=== PATIENT | male | born 1955 | race Caucasian/White ===

== ENCOUNTER 2018-04-08 09:05 | Observation (INO) | payer MEDICARE ==
[~2018-04-08] VITALS: Ht 175.3 cm; Wt 106.6 kg
[2018-04-08] MEDS ORDERED: LORazepam 2 MG/ML, 1ML ONE (09:29)
[2018-04-08] MEDS ORDERED: LORazepam 2 MG/ML, 1ML IVPush ONE (09:30)
[2018-04-08] MEDS ORDERED: SODIUM CHLORIDE FLUSH 10ML SYR IVF ONE (09:30)
[2018-04-08 09:53] LABS: BASOPHILS # (AUTO) 0.03 x10^3/uL (0-0.1); BASOPHILS % (AUTO) 0 % (0-1); EOSINOPHILS # (AUTO) 0.01 x10^3/uL (0-0.4); EOSINOPHILS % (AUTO) 0 % (1-7); LYMPHOCYTES # (AUTO) 0.57 x10^3/uL (1-3.4); LYMPHOCYTES % (AUTO) 8 % (22-44); MD NO; MEAN CORPUSCULAR HEMOGLOBIN 36.5 pg (27.5-34.5); MEAN CORPUSCULAR HGB CONC 34.4 g/dL (33.2-36.2); MEAN CORPUSCULAR VOLUME 106.3 fL (81-97); MEAN PLATELET VOLUME 8.2 fL (7.4-10.4); MONOCYTES # (AUTO) 0.63 x10^3/uL (0.2-0.8); MONOCYTES % (AUTO) 9 % (2-9); NEUTROPHILS # (AUTO) 6.11 x10^3/uL (1.8-6.8); NEUTROPHILS % (AUTO) 83 % (42-75); PLATELET COUNT 167 x10^3/uL (130-400); RED BLOOD COUNT 3.75 x10^6/uL (4.38-5.82); RED CELL DISTRIBUTION WIDTH 12.9 % (9.4-14.8)
[2018-04-08 10:05] LABS: ALANINE AMINOTRANSFERASE 52 U/L (12-78); ALBUMIN 3.6 g/dL (3.4-5.0); ANION GAP 19 mmol/L (5-15); CHLORIDE 103 mmol/L (98-107); CREATININE 1.58 mg/dL (0.7-1.3)
[2018-04-08 10:07] LABS: ALKALINE PHOSPHATASE 62 U/L (45-117); BILIRUBIN,TOTAL 0.7 mg/dL (0.2-1.0); TOTAL PROTEIN 8.3 g/dL (6.4-8.2)
[2018-04-08 10:14] LABS: SALICYLATE LEVEL < 1.7 mg/dL (2.8-20.0)
[2018-04-08 10:15] LABS: ACETAMINOPHEN < 2 mcg/mL (10-30)
[2018-04-08] MEDS ORDERED: ASPI-496 PO (10:57)
[2018-04-08] MEDS ORDERED: FOLI0.4T2 PO (11:55)
[2018-04-08] MEDS ORDERED: LEVE250T5 PO (11:55)
[2018-04-08] MEDS ORDERED: BUME0.5T PO (11:55)
[2018-04-08] MEDS ORDERED: HYDR-3237 PO (11:55)
[2018-04-08 12:13] VITALS: BP 126/86
[2018-04-08] MEDS ORDERED: LORazepam 1MG TABLET PO ONE (13:30)
[2018-04-08] MEDS ORDERED: LORazepam 1MG TABLET ONE (13:32)
[2018-04-08] MEDS ORDERED: ONDANSETRON 2MG/ML, 2ML IVPush PRN (14:30)
[2018-04-08] MEDS ORDERED: ACETAMINOPHEN 325 MG TABLET PO PRN (14:30)
[2018-04-08] MEDS ORDERED: LABETALOL 5MG/ML, 20ML IVPush PRN (14:30)
[2018-04-08] MEDS ORDERED: LORazepam 1MG TABLET PO PRN (14:30)
[2018-04-08] MEDS ORDERED: ONDANSETRON ODT 4 MG PO PRN (14:30)
[2018-04-08] MEDS ORDERED: LORazepam 2 MG/ML, 1ML IVPush PRN (14:30)
[2018-04-08] MEDS ORDERED: TEMAZEPAM 15 MG CAPSULE PO PRN (14:30)
[2018-04-08] MEDS ORDERED: POTASSIUM CHLORIDE 20 MEQ, MAGNESIUM SULFATE 1 GM, THIAMINE 200 MG, FOLIC ACID 1 MG, MV... IV SCH (15:00)
[2018-04-08 15:30] VITALS: BP 132/83
[2018-04-08 18:39] LABS: CLOSTRIDIUM DIFFICILE ANTIGEN NEGATIVE; CLOSTRIDIUM DIFFICILE TOXIN NEGATIVE (Negative)
[2018-04-08 20:00] VITALS: BP 138/92
[2018-04-08 20:17] VITALS: BP 136/79
[2018-04-08] MEDS: FAMOTIDINE 20 MG TABLET PO SCH (21:34)
[2018-04-08] MEDS: LEVETIRACETAM 500 MG TABLET PO SCH (21:34)
[2018-04-08 23:30] VITALS: BP 136/79
[2018-04-09 00:41] LABS: MICROSCOPIC NOT IND
[2018-04-09 00:45] LABS: CULTURE INDICATED? NO
[2018-04-09 00:55] LABS: AMPHETAMINE SCREEN, URINE Negative (Negative); BARBITURATE SCREEN, URINE Negative (Negative); BENZODIAZEPINE SCREEN, URINE Negative (Negative); CANNABINOID SCREEN, URINE Positive (Negative); COCAINE SCREEN, URINE Negative (Negative); METHADONE SCREEN, URINE Negative (Negative); OPIATE SCREEN, URINE Negative (Negative)
[2018-04-09 01:46] VITALS: BP 135/90
[2018-04-09 01:51] VITALS: BP 158/95
[2018-04-09 03:50] LABS: ALBUMIN 3.2 g/dL (3.4-5.0); ANION GAP 9 mmol/L (5-15); CALCIUM 8.2 mg/dL (8.5-10.1); CHLORIDE 104 mmol/L (98-107)
[2018-04-09 03:53] LABS: ALANINE AMINOTRANSFERASE 40 U/L (12-78); ALKALINE PHOSPHATASE 49 U/L (45-117); BILIRUBIN,TOTAL 1.3 mg/dL (0.2-1.0); CREATININE 1.38 mg/dL (0.7-1.3); TOTAL PROTEIN 7.1 g/dL (6.4-8.2)
[2018-04-09 03:58] LABS: MEAN CORPUSCULAR HEMOGLOBIN 36.7 pg (27.5-34.5); MEAN CORPUSCULAR HGB CONC 34.5 g/dL (33.2-36.2); MEAN CORPUSCULAR VOLUME 106.5 fL (81-97); MEAN PLATELET VOLUME 8.5 fL (7.4-10.4); PLATELET COUNT 152 x10^3/uL (130-400); RED BLOOD COUNT 3.42 x10^6/uL (4.38-5.82); RED CELL DISTRIBUTION WIDTH 12.8 % (9.4-14.8)
[2018-04-09 04:17] LABS: MD YES
[2018-04-09 04:21] LABS: BAND#(MANUAL) 0.11 x10^3/uL; BANDS%(MANUAL) 2 % (0-7); EOS#(MANUAL) 0.06 x10^3/uL (0.0-0.4); EOS% (MANUAL) 1 % (1-7); LYMPHS% (MANUAL) 21 % (22-44); MONOS#(MANUAL) 0.63 x10^3/uL (0.3-2.7); MONOS% (MANUAL) 11 % (2-9); SEG#(MANUAL) 3.71 x10^3/uL (1.8-6.8); SEGS% (MANUAL) 65 % (42-75)
[2018-04-09 04:22] LABS: ANISOCYTOSIS 1+
[2018-04-09 04:23] LABS: <PLATELET ESTIMATE> ADEQUATE; <PLT MORPHOLOGY> NORMAL PLT MORPH
[2018-04-09 06:57] VITALS: BP 128/87
[2018-04-09] MEDS ORDERED: ASPIRIN 81 MG TABLET EC PO SCH (09:00)
[2018-04-09] MEDS ORDERED: FOLIC ACID 1 MG TABLET PO SCH (09:00)
[2018-04-09] MEDS: FAMOTIDINE 20 MG TABLET PO SCH (09:23)
[2018-04-09] MEDS: LEVETIRACETAM 500 MG TABLET PO SCH (09:23)
== END 2018-04-09 09:50 | disposition left against medical advice (07) ==
LOC: ED 10:39 → INTOOBSV 10:40 → EDIP 10:40 → 4EST 11:33 → 4WST 15:52
PROVIDERS: ADMIT Internal Medicine; ATTEND Internal Medicine
DX: G40.909 Epilepsy, unspecified, not intractable, without status epilepticus (principal); R55 Syncope and collapse; E87.2 Acidosis; R73.9 Hyperglycemia, unspecified; N28.9 Disorder of kidney and ureter, unspecified; E86.0 Dehydration; R00.0 Tachycardia, unspecified; R11.2 Nausea with vomiting, unspecified; F12.90 Cannabis use, unspecified, uncomplicated; F10.239 Alcohol dependence with withdrawal, unspecified; I50.9 Heart failure, unspecified; K29.70 Gastritis, unspecified, without bleeding; D53.9 Nutritional anemia, unspecified
CPT/HCPCS: 36415; 70450; 80053; 80307; 80329; 81003; 82140; 83605; 83735; 84100; 85025; 87324; 93005; 95819; 96361; 96374; 99285; G0378; J2060; J3411; J3475; J3480; J7030; G0480